=== PATIENT | male | born 1985 | race Caucasian/White ===

== ENCOUNTER 2018-09-07 04:22 | Emergency (ER) | payer MEDICAID, OTHER ==
[~2018-09-07] VITALS: Ht 172.7 cm; Wt 64.9 kg
[2018-09-07] MEDS ORDERED: CEFTRIAXONE 1 G VIAL IM ONE (04:30)
[2018-09-07] MEDS ORDERED: TDAP DIPH,PERTUSS,TET VAC/PF 0.5 ML DISP.SYRIN IM ONE ×2 (04:30→04:33)
[2018-09-07] MEDS ORDERED: CEFTRIAXONE 1 G VIAL ONE (04:33)
[2018-09-07] MEDS ORDERED: LIDOCAINE HCL 1% 20 ML VIAL ONE (04:34)
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
--- NOTE | 2018-09-07 04:50 | NUR ---
Called [facility] for higher level of care per Dr. Covington and spoke with Mecca Gustafson RN. Per Janay, she will have Trauma surgeon call back.
--- NOTE | 2018-09-07 05:00 | NUR ---
Dr. Covington on phone with Dr. Barbosa (trauma surgeon - [facility])
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
--- NOTE | 2018-09-07 05:20 | NUR ---
Discharge instructions given to [employer] officers.
--- NOTE | 2018-09-07 06:30 | NUR ---
According to Dr. Melton, patient will need pain medication so that we can splint the LLE
[2018-09-07] MEDS ORDERED: HYDROMORPHONE 1 MG/1 ML DISP.SYRIN ONE (06:42)
[2018-09-07] MEDS ORDERED: CEFAZOLIN 1 G VIAL ONE (06:42)
[2018-09-07] MEDS ORDERED: HYDROMORPHONE 1 MG/1 ML DISP.SYRIN IV ONE (06:45)
[2018-09-07] MEDS ORDERED: CEFAZOLIN 1 G in IV DEXTROSE 5% 50 ML IV ONE (06:45)
--- NOTE | 2018-09-07 07:21 | NUR ---
Report given to [facility]
--- NOTE | 2018-09-07 07:25 | NUR ---
officesebastian braga from [employer] at bedside, returning pt belongings.
--- NOTE | 2018-09-07 07:30 | NUR ---
pt mother at bedside. d/c instruction with the copy of the images provided for pt and mother by the er md. pt axox 4.Patient discharged to home in stable conditon. Written and verbal after care instructions given. Patient verbalizes understanding of instructions.
--- NOTE | 2018-09-07 08:08 | NUR ---
the returnedd belonging from [employer] handed to mother. pt oked.
[2018-09-07 08:09] VITALS: BP 129/81
== END 2018-09-07 08:10 | disposition home or self-care (01) ==
LOC: EDBD 04:24 → ER 04:24
DX: S82.492A Other fracture of shaft of left fibula, initial encounter for closed fracture (principal); W32.0XXA Accidental handgun discharge, initial encounter; Y93.89 Activity, other specified; Y92.89 Other specified places as the place of occurrence of the external cause; Y99.8 Other external cause status
CPT/HCPCS: 29505; 73590 ×2; 90471; 90715; 96365; 96372; 96375; 99283; J0690; J0696; J1170; J3490; J7060; A4217; A4663